=== PATIENT | female | born 1955 | race Caucasian/White ===

== ENCOUNTER 2019-07-12 08:50 | Day surgery (SDC) | payer MEDICARE, OTHER ==
[~2019-07-12] VITALS: Ht 157.5 cm; Wt 80.7 kg
[~2019-07-12 08:50] MED LIST: ASPIRIN EC81 MG PO; CIPRO500 MG PO; CITALOPRAM HBR20 MG PO; CLOBETASOL PROP15 GM TOP; DICLOFENAC POTA50 MG PO; FLAGYL250 MG PO; FLAGYL500 MG PO; HYDROCHLOROTHIA25 MG PO; LEVOTHYROXINE125 MCG PO; LOVASTATIN20 MG PO; OCUVITE TABLET1 EAC1 PO; PEPCID20 MG PO; PERCOCET 7.5-31 EACH PO; PRENATAL MULTI1 EAC5 PO; PRENATAL TABLE1 EACH PO; PRILOSEC20 MG PO; ROPINIROLE HC0.25 MG PO; SULFAMETHOXAZO1 EAC1 PO; VICODIN 5-3001 EACH PO; VISION VITAMIN1 EACH PO; VITAMIN C100 MG PO; VITAMIN D1000 UNI1 PO; ZYRTEC10 MG PO
--- NOTE | 2019-07-12 10:24 | NUR ---
update for wait given. warm blanket on. iv patent.
--- NOTE | 2019-07-12 10:48 | NUR ---
VERSED GIVEN FOR RESTLESS LEGS. RAILS UP O2 SAT ON.95% ON RA.
--- NOTE | 2019-07-12 11:30 | NUR ---
CANNONEER AP IN TO DO BLOCK, L ARM.
[2019-07-12] MEDS ORDERED: HYDROCODON-ACE1 EA11 PO (13:26)
--- NOTE | 2019-07-12 14:12 | NUR ---
RUNNING ERRANDS. PTSLEEPY.
--- NOTE | 2019-07-12 15:22 | NUR ---
AMB IN [place] TO [place], VOIDS QS. WANTS TO GO HOME. GETTING DRESSED WITH HUSBANDASSIST.
--- NOTE | 2019-07-12 15:30 | OR ---
[facility] [address] [place], [place] [address] Signed DATE OF OPERATION: 07/12/2019 SURGEON: Charan Mulligan MD PREOPERATIVE DIAGNOSIS: Carpometacarpal arthrosis, left thumb. POSTOPERATIVE DIAGNOSIS: Carpometacarpal arthrosis, left thumb. PROCEDURE PERFORMED: Left carpometacarpal arthroplasty. POTATO SPOTTER: Whitney Saenz PA-C. Whitney was present and critical for all portions of procedure. ANESTHESIA: General. BLOOD LOSS: Minimal. TOURNIQUET TIME: 43 minutes. Arthrex interference screw was used. BRIEF HISTORY: Kimmie is a 63-year-old female with CMC arthritis that had been treated with bracing and injections and was no longer effective. She wished to proceed with operative intervention. Risks, benefits, and alternatives of surgery were discussed with her and she elected to proceed. DESCRIPTION OF PROCEDURE: Once consent was obtained, she was taken to the operating room. After adequate anesthesia, she was placed on operating table. Downside pressure points were well padded. A well-padded proximal arm tourniquet was placed. The arm was then prepped and draped in a standard sterile fashion and exsanguinated using Esmarch bandage. Tourniquet was inflated to 200 mmHg. The CMC joint was marked out as was the FCR tendon. The volar wrist was then approached through a curved incision along the Electronically Signed By: CHARAN MULLIGAN MD 07/12/19 1530 PATIENT NAME: KIMMIE PADILLA OPERATIVE REPORT DATE OF : 51 REPORT #: [id number] PHYSICIAN: CHARAN MULLIGAN MD PCP: JONATHAN TEMPLE MD REPORT IS CONFIDENTIAL AND NOT TO BE RELEASED WITHOUT AUTHORIZATION [facility] [address] [place], [place] [address] Signed glabrous line. This carried through skin subcutaneous tissue. The volar wrist capsule was then opened and elevated off the trapezium. The freezing was isolated removed by piecemeal after splitting with an osteotome. Once all the bone was removed, the base of the thumb metacarpal was cleared of soft tissue. The FCR was then harvested through a separate stab incision about 4 cm proximally. This was brought back down into the wrist. This was then cleared down to its insertion on the base of the 2nd. Once this was accomplished, the guide gary. The guide pin was a car but was taken across the base of the thumb metacarpal and overdrilled using the 4 mm drill. The tendon was then brought through this using the fingertrap. Using the push-pull method, the tendon was tightened and the interference screw was placed in the bone. Excellent fixation was obtained. Tendon was then folded over on itself and sutured back to its base at the 2nd metacarpal using 2-0 Vicryl. Multiple sutures were placed. Remainder of the tendon was then sutured into a and she will be. This was left in the void. The wound was copiously irrigated with antibiotic solution and the volar wrist capsule was closed with 3-0 Monocryl, subcutaneous tissue with 3-0 Monocryl, and skin with Steri-Strips. The wounds were dressed with Adaptic, 4x4s, and a thumb spica splint. She tolerated the procedure well. All sponge, needle, and instrument counts were correct. Charan Mulligan MD BA/MODL /[id number] Copies: ~ Electronically Signed By: CHARAN MULLIGAN MD 07/12/19 1530 PATIENT NAME: KIMMIE PADILLA OPERATIVE REPORT DATE OF : 51 REPORT #: [id number] PHYSICIAN: CHARAN MULLIGAN MD PCP: JONATHAN TEMPLE MD REPORT IS CONFIDENTIAL AND NOT TO BE RELEASED WITHOUT AUTHORIZATION
--- NOTE | 2019-07-12 15:38 | NUR ---
HAS DONE WELL. HAS HAD L ARM SLING ON.REMINDED TO BE AWARE OF WHERE ARM IS SHE CANT FEEL IT. ALSO TOLD THIS. DRANK WATER AND COFFEE.
== END 2019-07-12 15:25 | disposition home or self-care (01) ==
LOC: OPS 08:50 → DS 08:50 → OPS 12:00 → DS 12:00 → OPS 12:30
PROVIDERS: Specialist
PROC: 0RQT0ZZ Repair Left Carpometacarpal Joint, Open Approach (ICD-10-PCS; principal; 2019-07-12 12:30)
DX: M18.12 Unilateral primary osteoarthritis of first carpometacarpal joint, left hand (principal); F17.210 Nicotine dependence, cigarettes, uncomplicated; K21.9 Gastro-esophageal reflux disease without esophagitis; Z88.1 Allergy status to other antibiotic agents; Z79.899 Other long term (current) drug therapy; Z79.1 Long term (current) use of non-steroidal anti-inflammatories (NSAID)
CPT/HCPCS: 01830; 64417; 76942; C1713; J0690; J1100; J1885; J2250; J2405; J2704; J2765; J2795; J3010; J7121

== ENCOUNTER 2021-03-11 06:25 | Day surgery (SDC) | payer MEDICARE, OTHER ==
[~2021-03-11] VITALS: Ht 157.5 cm; Wt 77.3 kg
[~2021-03-11 06:25] MED LIST changes: +HYDROCODON-ACE1 EA11 PO
--- NOTE | 2021-03-11 08:04 | NUR ---
PT ALERT, ORIENTED AND MENTIONED SHE DID NOT SLEEP WELL LAST NIGHT. DROVE IN FROM [place] THIS AM. PT SOMEWHAT ANXIOUS, GAVE ENCOURAGEMENT AND GUIDANCE FOR THE DAY. PT REQUESTED PRAYER, PT'S IS IN TOWN RUNNING ERRANDS. WILL FOLLOW NEEDED
--- NOTE | 2021-03-11 10:45 | NUR ---
03/11/21 Alex5 Xiao Fletcher 1036- PT ARRIVES TO PACU NONAROUSABLE TO NOXIOUS STIMULI. PT SUCTIONED FOR SECRETIONS BY SEAT BUILDER. RESP 20-24 AND EVEN. OXYGEN SAT HIGH 90'S TO 100% ON 8L VIA MASK.
--- NOTE | 2021-03-11 11:23 | NUR ---
PT IS BACK TO DS FROM PACU. SHE IS DROWSY, BUT WAKES UP EASILY TO ANSWER QUESTIONS APPROPRIATELY. SHE IS TOLERATING SMALL SIPS OF WATER. CALL LIGHT WITHIN REACH. NO ADDITIONAL NEEDS.
--- NOTE | 2021-03-11 12:38 | NUR ---
PT IS ASSISTED UP OOB TO THE RESTROOM WHERE SHE VOIDS QS. SHE IS ABLE TO AMBULATE HERSELF BACK TO HER ROOM. SHE REQUESTS APPLE SAUCE. SHE IS EDUCATED THAT ONCE SHE IS DONE EATING, SHE CAN GET DRESSED, SHE IS EDUCATED ON HOW TO BEST DO THAT. ONCE SHE IS READY IS ASKED TO TURN ON HER CALL LIGHT. CALL LIGHT WITHIN REACH.
--- NOTE | 2021-03-11 13:12 | NUR ---
PT IS GIVEN VERBAL DC INSTRUCTIONS. THEY BOTH VERBALIZE UNDERSTANDING. NO QUESTIONS ARE ASKED AT THIS TIME. PT IS TAKEN TO VEHICLE VIA WC, SHE IS ABLE TO TRANSFER HERSELF FROM WC TO VEHICLE.
--- NOTE | 2021-03-12 13:46 | OR ---
[facility] [address] [place], [place] [address] Signed DATE OF OPERATION: 03/11/2021 SURGEON: Eduard Barajas MD PREOPERATIVE DIAGNOSIS: Left vocal cord lesion. POSTOPERATIVE DIAGNOSIS: Left vocal cord lesion. PROCEDURE: Direct laryngoscopy, excision of left vocal cord lesion. ANESTHESIA: General orotracheal, ASSISTANT FINANCIAL ACCOUNTANT, Kristi. HISTORY: Ms. Padilla is a 65-year-old lady with chronic lung disease, COPD, hoarseness for the last year, so she has been improved with several courses of antibiotics, prednisone. Exam in the office recently fiberoptically has shown polypoid changes of the left vocal cord, midportion and posterior portion, and she was taken to the operating room for the above-mentioned procedures. PROCEDURE AND FINDINGS: After informed consent, the patient was taken to the operating room, placed in supine position, where general orotracheal anesthesia was induced. The patient and procedure were verified. The patient was repositioned. Anterior commissure laryngoscope was used to visualize the hypopharynx and larynx. Everything normal down to the left vocal cord, right vocal cord was clear. The left vocal cord had a reddish vascular appearing smooth mucosal polypoid type change of the left vocal cord, not involving the anterior commissure starting about the mid portion of the vocal cord, extending back posteriorly to the vocal process of the retinoid. The laryngoscope was placed into suspension. Cup forceps was used to excise polypoid material, it was quite vascular, but bleeding stopped after excision. The airway was improved. Hemostasis was verified. An OG tube was passed. The pharynx was suctioned clear of blood secretions. The scope was removed. The patient was awakened, extubated, and transported to the recovery room in good condition. No complications. BLOOD LOSS: Minimal. Electronically Signed By: EDUARD BARAJAS MD 03/11/21 1330 Electronically Signed By: EDUARD BARAJAS MD 03/18/21 1213 PATIENT NAME: KIMMIE PADILLA OPERATIVE REPORT DATE OF : 51 REPORT #: [id number] PHYSICIAN: EDUARD BARAJAS MD PCP: ALINA ROGERS NP REPORT IS CONFIDENTIAL AND NOT TO BE RELEASED WITHOUT AUTHORIZATION [address] [address] Signed SPECIMEN: To Pathology, left vocal cord lesion in formalin. DRAINS: No drains. Eduard Barajas MD GC/MODL /[id number] Copies: ~ Electronically Signed By: EDUARD BARAJAS MD 03/11/21 1330 Electronically Signed By: EDUARD BARAJAS MD 03/18/21 1213 PATIENT NAME: KIMMIE PADILLA OPERATIVE REPORT DATE OF : 51 REPORT #: [id number] PHYSICIAN: EDUARD BARAJAS MD PCP: ALINA ROGERS NP REPORT IS CONFIDENTIAL AND NOT TO BE RELEASED WITHOUT AUTHORIZATION
[2021-04-07] MEDS ORDERED: FLONASE ALLERG9.9 ML NAS (16:13)
[2021-04-07] MEDS ORDERED: VENTOLIN HFA18 GM INH (16:13)
[2021-04-07] MEDS ORDERED: ANORO ELLIPTA1 EACH INH (16:14)
[2021-04-07] MEDS ORDERED: SINGULAIR10 MG PO (16:14)
[2021-04-07] MEDS ORDERED: FOSAMAX70 MG PO (16:15)
[2021-04-07] MEDS ORDERED: VITAMIN C1000 MG PO (16:15)
[2021-04-07] MEDS ORDERED: LIPITOR10 MG PO (16:16)
[2021-04-07] MEDS ORDERED: ZESTRIL5 MG PO (16:17)
[2021-04-07] MEDS ORDERED: LEVOTHYROXINE13 MCG PO (16:17)
== END 2021-03-11 13:05 | disposition home or self-care (01) ==
LOC: DS 06:25 → OPS 06:25 → DS 10:15 → OPS 10:15
PROVIDERS: ATTEND Otolaryngology
PROC: 0CBV8ZZ Excision of Left Vocal Cord, Via Natural or Artificial Opening Endoscopic (ICD-10-PCS; principal; 2021-03-11 10:15)
DX: J38.2 Nodules of vocal cords (principal); R49.0 Dysphonia; J44.9 Chronic obstructive pulmonary disease, unspecified; E03.9 Hypothyroidism, unspecified; F17.200 Nicotine dependence, unspecified, uncomplicated; Z88.0 Allergy status to penicillin; Z20.822 Contact with and (suspected) exposure to COVID-19
CPT/HCPCS: 00170; 88305; J1100; J2550; J2704; J3475; J7121; U0003

== ENCOUNTER 2021-04-08 07:29 | Day surgery (SDC) | payer MEDICARE, OTHER ==
[~2021-04-08] VITALS: Ht 157.5 cm; Wt 79.5 kg
[~2021-04-08 07:29] MED LIST changes: +ANORO ELLIPTA1 EACH INH; +FLONASE ALLERG9.9 ML NAS; +FOSAMAX70 MG PO; +LEVOTHYROXINE13 MCG PO; +LIPITOR10 MG PO; +SINGULAIR10 MG PO; +VENTOLIN HFA18 GM INH; +VITAMIN C1000 MG PO; +ZESTRIL5 MG PO
--- NOTE | 2021-04-08 08:00 | NUR ---
BOTH NARES SWABBED FOR COVID-19 WITHOUT COMPLICATION. SAMPLE TAKEN TO LAB.
--- NOTE | 2021-04-08 11:14 | NUR ---
04/08/21 1114 Aida Baker 1107 PATIENT ARRIVES TO PACU UNRESPONSIVE TO PAIN. ORAL AIRWAY IN PLACE. RESP EVEN AND UNLABORED, MASK AT 10 LITERS, DECREASED TO 6. AUDIBLE WHEEZING NOTED.
--- NOTE | 2021-04-08 13:05 | NUR ---
1300: PATIENT MORE ALERT, BUT STILL SLIGHTLY DROWSY. TOLERATED JELLO, PUDDING, AND CRACKERS. VS CHECKED. NO DRAINAGE ON MOUSTACHE DRESSING. AT BEDSIDE. DENIES PAIN. CALL LIGHT WITHIN REACH.
[2021-04-08] MEDS ORDERED: CEPHALEXIN500 M1 PO (14:02)
[2021-04-08] MEDS ORDERED: HYDROCODON-ACE1 EA10 PO (14:02)
--- NOTE | 2021-04-08 16:19 | NUR ---
1430: DISCHARGE INSTRUCTIONS GIVEN TO PATIENT. PATIENT ASSISTED OOB AND TO GET DRESSED. STAND BY ASSIST TO BATHROOM. GAIT STEADY. VOID WITHOUT DIFFICULTY. GAIT STEADY BACK TO ROOM. IV DC'D WNL. TIP INTACT DRESSING APPLIED. WAITING FOR (RIDE HOME) TO COME BACK TO HOSPITAL AFTER HIS OWN DR APPT. 1500: PATIENT DISCHARGED TO HOME VIA WHEELCHAIR WITH .
--- NOTE | 2021-04-15 12:19 | OR ---
[facility] [address] [place], [place] [address] Signed DATE OF OPERATION: 04/08/2021 SURGEON: Eduard Barajas MD PREOPERATIVE DIAGNOSIS: Nasal obstruction due to septal deformity and inferior turbinate hypertrophy. POSTOPERATIVE DIAGNOSIS: Nasal obstruction due to septal deformity and inferior turbinate hypertrophy. PROCEDURE: Septoplasty and cautery, bilateral inferior turbinates. ANESTHESIA: General LMA. Jett LANDRUM. PREOPERATIVE HISTORY: Kimmie is a 65-year-old lady with a long history of nasal obstruction, congestion. Exam in the office has shown septal deformity, inferior turbinate hypertrophy, this has been unresponsive to appropriate medications and she is taken to the operating for the above-mentioned procedures. OPERATIVE PROCEDURE AND FINDINGS: After informed consent, the patient was taken to the operating room, placed in supine position where general LMA anesthesia was induced. The patient and procedure were verified. The patient received preoperative intranasal oxymetazoline, intravenous Ancef. Headlight speculum exam of the nasal cavity showed a significant septal deformity on the left side, large shelf and spur mainly inferiorly, posteriorly, smaller spur on the right. Septal mucosa was injected with 1% lidocaine with epi on each side, total of 4 mL. The septal mucosa was elevated off the deviated septal bone and cartilage and the cartilage and bone was removed with Solis, left inferior and posterior shelf and the right inferior. The airway was improved in this manner. The inferior turbinates were then cauterized with a long handle needle point cautery starting on the left side. The medial and inferior surface of the inferior turbinate starting anteriorly extending all the way back posteriorly, multiple passes, transmucosal, excellent shrinkage. Same procedure on the right inferior turbinate. The airway was markedly improved. Bleeding was controlled. Hemostasis verified. Packing was then placed. Trimmed Merocel equal amount each side, coated with Neosporin, tied anteriorly over a pad. The pharynx was suctioned clear of blood secretions. The Electronically Signed By: EDUARD BARAJAS MD 04/15/21 1219 PATIENT NAME: KIMMIE PADILLA OPERATIVE REPORT DATE OF : 51 REPORT #: [id number] PHYSICIAN: EDUARD BARAJAS MD PCP: ALINA ROGERS NP REPORT IS CONFIDENTIAL AND NOT TO BE RELEASED WITHOUT AUTHORIZATION [address] [address] Signed patient was then awakened, extubated, transported to the recovery room in good condition. No complications. BLOOD LOSS: Minimal. SPECIMEN: No specimen. DRAINS: No drains. PACKING: One piece of Merocel each nostril. Eduard Barajas MD GC/MODL /[id number] Copies: ~ Electronically Signed By: EDUARD BARAJSA MD 04/15/21 1219 PATIENT NAME: KIMMIE PADILLA OPERATIVE REPORT DATE OF : 51 REPORT #: [id number] PHYSICIAN: EDUARD BARAJAS MD PCP: ALINA ROGERS NP REPORT IS CONFIDENTIAL AND NOT TO BE RELEASED WITHOUT AUTHORIZATION
== END 2021-04-08 15:00 | disposition home or self-care (01) ==
LOC: OPS 07:29 → DS 07:29 → OPS 11:00
PROVIDERS: ATTEND Otolaryngology
PROC: 09BM8ZZ Excision of Nasal Septum, Via Natural or Artificial Opening Endoscopic (ICD-10-PCS; principal; 2021-04-08 11:00)
PROC: 095L8ZZ Destruction of Nasal Turbinate, Via Natural or Artificial Opening Endoscopic (ICD-10-PCS; 2021-04-08 11:00)
DX: J34.2 Deviated nasal septum (principal); J34.3 Hypertrophy of nasal turbinates; J34.89 Other specified disorders of nose and nasal sinuses; J44.9 Chronic obstructive pulmonary disease, unspecified; K21.9 Gastro-esophageal reflux disease without esophagitis; E03.9 Hypothyroidism, unspecified; E78.00 Pure hypercholesterolemia, unspecified; I10 Essential (primary) hypertension; R01.1 Cardiac murmur, unspecified; F17.200 Nicotine dependence, unspecified, uncomplicated; Z88.0 Allergy status to penicillin; Z20.822 Contact with and (suspected) exposure to COVID-19; Z99.81 Dependence on supplemental oxygen; Z79.52 Long term (current) use of systemic steroids
CPT/HCPCS: 00160; C9803; J0690; J7121; U0003

== ENCOUNTER 2021-07-10 10:51 | Day surgery (SDC) | payer MEDICARE, OTHER ==
[~2021-07-10] VITALS: Ht 157.5 cm; Wt 76.2 kg
[~2021-07-10 10:51] MED LIST changes: +CEPHALEXIN500 M1 PO; +HYDROCODON-ACE1 EA10 PO
[2021-07-10] MEDS ORDERED: LIPITOR20 MG PO (11:23)
[2021-07-10] MEDS ORDERED: ASPIRIN81 MG PO (11:34)
--- NOTE | 2021-07-12 10:50 | OR ---
[facility] [address] [place], [place] [address] Signed DATE OF OPERATION: 07/10/2021 SURGEON: Jonathan Corbin MD PREOPERATIVE DIAGNOSES: 1. Anemia (hematocrit 30.8, March 2021); no evidence of hematemesis or blood per rectum. 2. History of sigmoid diverticular resection. 3. Known celiac disease. POSTOPERATIVE DIAGNOSES: 1. Upper endoscopy essentially normal. 2. Colon normal, anastomosis widely patent. PROCEDURES: 1. Esophagogastroduodenoscopy with biopsy. 2. Total colonoscopy to cecum with biopsy of rectum. ANESTHESIA: Intravenous sedation; fentanyl 100 mcg and Versed 5 mg total. INDICATION: This 65-year-old white woman is a patient Dr. Duarte and well known to me. On a vacation in the past several months, she had a diarrhea bout, which was rather prolonged and problematic, but resolved entirely. She has no family history of colon cancer and she is known to have celiac disease for which she generally avoids gluten. She was sent by Dr. Duarte in March to have hematocrit of 30.8 for reasons that are unclear. On that basis, she is here to undergo upper endoscopy and colonoscopy, understands the risks of bleeding, infection, and perforation. FINDINGS: Upper endoscopy was essentially normal. There was a small hiatal hernia, Ann's epithelium, but no sign of lesion that would account for anemia. The mucosa of the duodenum including the distal duodenum appeared reasonably normal. Biopsies were obtained on the knowledge that she has been considered to have celiac disease in the past. CLOtest was -30 minutes post procedure. As regard to the colon, it was well visualized throughout. There were a few scattered diverticula, but no findings of concern in the area of prior anastomosis widely patent. The rectum was biopsied to rule out occult colitis. Electronically Signed By: JONATHAN CORBIN MD 07/12/21 1050 PATIENT NAME: KIMMIE PADILLA OPERATIVE REPORT DATE OF : 51 REPORT #: [id number] PHYSICIAN: JONATHAN CORBIN MD PCP: PAUL DUARTE MD REPORT IS CONFIDENTIAL AND NOT TO BE RELEASED WITHOUT AUTHORIZATION [facility] [address] [place], [place] [address] Signed DESCRIPTION OF PROCEDURE: The patient was brought to the endoscopy suite and placed in lateral decubitus position, given intravenous sedation to the point of slurred speech and nystagmus. Full cardiopulmonary monitoring was maintained. The pharynx had been sprayed with lidocaine spray. A bite block was placed. An Olympus video upper endoscope was passed in the hypopharynx. The vocal cords were normal and the scope was passed into hypopharynx and the esophagus, which was normal except for some distal minimal Ann's epithelium. The scope was advanced to the stomach, which was insufflated with air. Rugal folds were normal. There was no sign of gastritis, ulcer, or neoplasm. Pylorus was normal. Scope was passed through into the duodenum as far as possible. Biopsies were taken distally and proximally, though the mucosa looked reasonably normal. There was no ulcer and no stigmata of celiac disease. The scope was withdrawn to the stomach where biopsies were taken of the antrum for both KARINA and pathologic testing. Retroflexed view showed small hiatal hernia. The scope was withdrawn to the distal esophagus where Ann's epithelium was noted. This area in the distal esophageal mucosa was biopsied. Careful withdrawal of the scope showed no other findings of concern. Plans were made for colonoscopy. Additional sedation was given. Digital rectal examination was normal. An Olympus video colonoscope was passed in the rectum and manipulated throughout the colon noting the left-sided anastomosis from primary sigmoid resection. It was widely patent. The scope was ultimately advanced to the cecum. The ileocecal valve and appendiceal orifice were normal. Scope was withdrawn from that point. Examination throughout showed no evidence of polyps or colitis. There were a few scattered diverticula. The anastomosis looks once again evaluated and found to be normal. The scope was withdrawn to the rectum. Retroflexed view was essentially normal. Biopsies were taken of the rectal mucosa to assess for occult colitis. The scope was removed and the patient was taken to the recovery room in good condition. CONCLUDING DIAGNOSIS: No findings on upper or lower endoscopic evaluation to account for anemia. PLAN: She will return to the ongoing care of Dr. Duarte. We will obtain a CBC today to assess her comparative hematocrit, which was 30.8 in March. Jonathan Corbin MD JM/MODL Electronically Signed By: JONATHAN CORBIN MD 07/12/21 1050 PATIENT NAME: KIMMIE PADILLA OPERATIVE REPORT DATE OF : 51 REPORT #: [id number] PHYSICIAN: JONATHAN CORBIN MD PCP: PAUL DUARTE MD REPORT IS CONFIDENTIAL AND NOT TO BE RELEASED WITHOUT AUTHORIZATION [address] [address] Signed /[id number] cc: Dr. Duarte Copies: ~ Electronically Signed By: JONATHAN CORBIN MD 07/12/21 1050 PATIENT NAME: KIMMIE PADILLA OPERATIVE REPORT DATE OF : 51 REPORT #: [id number] PHYSICIAN: JOANTHAN CORBIN MD PCP: PAUL DUARTE MD REPORT IS CONFIDENTIAL AND NOT TO BE RELEASED WITHOUT AUTHORIZATION
--- NOTE | 2021-07-14 14:39 | PATH ---
[facility] [address] [place], [place] [address] Signed SPECIMEN(S): A DISTAL DUODENUM BIOPSY SPECIMEN(S): B ANTRUM/PYLORUS BIOPSY SPECIMEN(S): C ESOPHAGEAL BIOPSY SPECIMEN(S): D RECTAL BIOPSY SPECIMEN SOURCE: A. DISTAL DUODENUM BIOPSY B. ANTRUM/PYLORUS BIOPSY C. ESOPHAGEAL BIOPSY D. RECTAL BIOPSY CLINICAL HISTORY: Pre-op: GERD, anemia, RUQ pain. Esophagogastroduodenoscopy, colonoscopy with possible biopsies. MICROSCOPIC DESCRIPTION: Histologic sections of all submitted blocks are examined by light microscopy. These findings, together with the gross examination, support the pathologic diagnosis. FINAL PATHOLOGIC DIAGNOSIS: A. Duodenum, distal, biopsy: - Duodenal mucosa with peptic injury. B. Stomach, antrum/pylorus, biopsy: - Gastric antral mucosa with no significant pathologic changes. - Negative for Helicobacter pylori with HE stains. C. Esophagus, biopsy: - Esophageal squamous mucosa with no significant pathologic changes. D. Rectum, biopsy: - Colonic mucosa with no significant pathologic changes. BRP:cml:C2NR GROSS DESCRIPTION: Four specimens are received in four containers labeled "PA". A. The specimen, labeled "PA, #1 biopsy distal duodenum," and designated on the requisition "duodenum bulb biopsy," is received in formalin and consists of five fragments of pink-jade tissue (0.2-0.4 cm in greatest dimension). The specimen is submitted entirely in cassette (A1). B. The specimen, labeled "PA, #2, antrum," is received in formalin and consists of two fragments of pink-jade tissue (0.3 cm in greatest dimension). The specimen is submitted entirely in cassette (B1). C. The specimen, labeled "PA, #3, distal esophagus," is received in formalin PATIENT NAME: IKMMIE PADILLA PATHOLOGY DATE OF : 51 REPORT #: [id number] PHYSICIAN: SANDRA PATHOLOGY PCP: PAUL DUARTE MD REPORT IS CONFIDENTIAL AND NOT TO BE RELEASED WITHOUT AUTHORIZATION [facility] [address] [place], [place] [address] Signed and consists of three fragments of white-jade tissue (0.2-0.3 cm in greatest dimension). The specimen is submitted entirely in cassette (C1). D. The specimen, labeled "PA, #4, rectal biopsy," is received in formalin and consists of three fragments of pink-jade tissue (0.1-0.3 cm in greatest dimension). The specimen is submitted entirely in cassette (D1). AC (under the direct supervision of a pathologist) The Gross Description was prepared using a voice recognition system. The report was reviewed for accuracy; however, sound-alike word errors, addition and/or deletions may occur. If there is any question about this report, please contact Client Services. PERFORMING LABORATORY: The technical component was performed by [facility], [address] [place] [id number] (Tankage Supervisor: Catherine Encarnacion MD; CLIA# [id number]). Professional interpretation was performed by [facility], Formerly [facility], 1928–[facility], [address] [place] [address] (CLIA# [id number]). Diagnostician: Jaylan Corral MD Pathologist Electronically Signed 07/14/2021 Copies: ~ PATIENT NAME: KIMMIE PADILLA PATHOLOGY DATE OF : 51 REPORT #: [id number] PHYSICIAN: SANDRA ORTEZ PCP: PAUL DUARTE MD REPORT IS CONFIDENTIAL AND NOT TO BE RELEASED WITHOUT AUTHORIZATION
== END 2021-07-10 15:40 | disposition home or self-care (01) ==
LOC: OPS 10:51 → DS 10:51 → OPS 14:00 → DS 14:00 → OPS 15:40
PROVIDERS: ATTEND Surgery
PROC: 0DBP8ZX Excision of Rectum, Via Natural or Artificial Opening Endoscopic, Diagnostic (ICD-10-PCS; 2021-07-10)
PROC: 0DB98ZX Excision of Duodenum, Via Natural or Artificial Opening Endoscopic, Diagnostic (ICD-10-PCS; principal; 2021-07-10 14:00)
PROC: 0DB78ZX Excision of Stomach, Pylorus, Via Natural or Artificial Opening Endoscopic, Diagnostic (ICD-10-PCS; 2021-07-10 14:00)
DX: D64.9 Anemia, unspecified (principal); K90.0 Celiac disease; K44.9 Diaphragmatic hernia without obstruction or gangrene; Z20.822 Contact with and (suspected) exposure to COVID-19
CPT/HCPCS: 85025; 88305; 99153; C9803; G0500; J2250; J3010; J7121; U0003

== ENCOUNTER 2025-06-12 10:52 | Day surgery (SDC) | payer MEDICARE, OTHER ==
[~2025-06-12] VITALS: Ht 157.5 cm; Wt 66.8 kg
[~2025-06-12 10:52] MED LIST changes: +ALTOPREV20 MG PO; +ASPIRIN81 MG PO; +IBLOOD GLUCOSE TEST STRIP 1 EA TEST VI PRN; +LACTATED RINGER'S 1,000 ML IV SCH; +LIDOCAINE HCL 1% 5 ML SDV INJ ONE; +LIDOCAINE HCL 4% 50 ML BTL TOP SCH; +LIPITOR20 MG PO; +TRAMADOL HCL50 MG PO
[2025-06-12 11:14] VITALS: BP 132/76
[2025-06-12] MEDS ORDERED: fentaNYL citrate 100 MCG/2 ML VIAL ONE (12:41)
[2025-06-12] MEDS ORDERED: MIDAZOLAM HCL 5 MG/5 ML VIAL ONE (12:41)
--- NOTE | 2025-06-12 13:51 | NUR ---
06/12/25 1351 Maude Barroso 1343: PT ARRIVES TO PACU. SHE IS DROWSY, BUT AWAKES EASILY TO CHAT WITH STAFF. REPROT RECEIVED FROM MODEL MAKING SUPERVISOR'S.
[2025-06-12 14:16] VITALS: BP 114/63
[2025-06-14] MEDS ORDERED: OMEPRAZOLE20 MG PO (15:26)
--- NOTE | 2025-06-15 18:26 | OR ---
[facility] [address], [place] [address] Signed DATE OF OPERATION: 06/12/2025 SURGEON: Jonathan Corbin MD PREOPERATIVE DIAGNOSIS: Persistent vomiting, concern for gastric outlet obstruction versus gastroparesis. POSTOPERATIVE DIAGNOSES: 1. No evidence of gastroparesis; hiatal hernia with Ann's esophagus. 2. Duodenitis. PROCEDURE: Esophagogastroduodenoscopy with biopsy. ANESTHESIA: Intravenous sedation, fentanyl 100 mcg, and Versed 3 mg. INDICATION: This 69-year-old white woman is a patient Dr. Duarte well known to me from the past. She had persistent nausea and vomiting issues such that she may have gastric outlet obstruction or possible gastroparesis. Upper endoscopy was recommended on that basis. Quite notably, she has had cholecystectomy in the past. She is taking no GLP-1 agonist to induce the gastroparesis problem. She is admitted to undergo upper endoscopy. She understands the risk of bleeding, infection, and perforation. FINDINGS: There is no evidence of gastric outlet obstruction, though she did have duodenitis, particularly in the proximal duodenum. There was mild antral gastritis. Hiatal hernia was noted and Ann's epithelium also noted. CLOtest was negative immediately post procedure. DESCRIPTION OF PROCEDURE: The patient was brought to the endoscopy suite and given topical lidocaine hypopharyngeal anesthesia and placed in lateral decubitus position. She was given intravenous sedation to the point of slurred speech and nystagmus with full cardiopulmonary monitoring. A bite block was placed. An Olympus video upper endoscope was passed in the hypopharynx. The vocal cords appeared normal. Scope was advanced to the esophagus, throughout its length it was reasonably normal except in the distal portion where there clearly was Ann's Electronically Signed By: JONATHAN CORBIN MD 06/15/25 1826 PATIENT NAME: KIMMIE PADILLA OPERATIVE REPORT DATE OF : 51 REPORT #: [id number] PHYSICIAN: JONATHAN CORBIN MD PCP: MONIKA DUARTE MD REPORT IS CONFIDENTIAL AND NOT TO BE RELEASED WITHOUT AUTHORIZATION [facility] [address], [place] [address] Signed epithelium. The scope was passed to the stomach, which was insufflated with air. Rugal folds were normal. There was no sign of ulceration, neoplasm, or retained food. There is certainly no gastric outlet obstruction. The pylorus was open and the scope passed through into the duodenum. The bulbar portion did appear somewhat inflamed, but without ulceration. The scope was passed to the third portion, which was normal. Biopsies were taken of the second and third portions and ultimately the bulbar portion. The scope was withdrawn. A biopsy was then taken for both KARINA and pathologic testing. Retroflexed view showed a hiatal hernia, moderate in size. The scope was withdrawn. A biopsy was then undertaken and distal esophageal mucosa was clearly showed Ann's epithelium. Further withdrawal allowed for midesophageal biopsy, though the mucosa was normal. Scope was removed. The patient was taken to the recovery room in good condition. CONCLUDING DIAGNOSIS: Ann's epithelium with associated hiatal hernia; no evidence of gastric outlet obstruction or gastroparesis proper. PLAN: We will prescribe Prilosec 20 mg p.o. daily. She has an incisional hernia for which repair might be undertaken. I do not believe that it is accounting for her nausea and vomiting issue. Scheduling of the operation will be appropriate. We will see her for repair of the hernia and coincidental followup of her reflux symptoms. MD TREVOR Little/AARONL /[id number] cc: Monika Duarte MD Copies: ~ Electronically Signed By: JONATHAN CORBIN MD 06/15/25 1826 PATIENT NAME: KIMMIE PADILLA OPERATIVE REPORT DATE OF : 51 REPORT #: [id number] PHYSICIAN: JONATHAN CORBIN MD PCP: MONIKA DUARTE MD REPORT IS CONFIDENTIAL AND NOT TO BE RELEASED WITHOUT AUTHORIZATION
--- NOTE | 2025-06-18 11:20 | PATH ---
[facility] [address], [place] [address] Signed SPECIMEN(S): A DUODENAL BIOPSY SPECIMEN(S): B DUODENAL BULB BIOPSY SPECIMEN(S): C ANTRUM BIOPSY SPECIMEN(S): D DISTAL ESOPHAGUS BIOPSY SPECIMEN(S): E MID ESOPHAGUS BIOPSY SPECIMEN SOURCE: A. DUODENAL BIOPSY B. DUODENAL BULB BIOPSY C. ANTRUM BIOPSY D. DISTAL ESOPHAGUS BIOPSY E. MID ESOPHAGUS BIOPSY CLINICAL HISTORY: Possible umbilical Pandya incisional hernia, regurgitation, anemia, hiatal hernia, Ann's esophagus FINAL PATHOLOGIC DIAGNOSIS: A. Duodenum, biopsy: - Duodenal mucosa with no villous abnormality identified. - Kimberly's glands are present. - Negative for acute, chronic, and granulomatous inflammation. - Negative for dysplasia and malignancy. B. Duodenal bulb, biopsy: - Duodenal mucosa with peptic duodenitis. - No villous abnormality identified. - Kimberly's glands are present. - Negative for dysplasia and malignancy. C. Stomach, antrum, biopsy: - Non-acid secreting gastric mucosa with slight superficial vascular congestion. - Negative for chronic, acute, and active inflammation. - No H. pylori-like organisms identified on routine HE-stained histologic sections. - Negative for intestinal metaplasia, dysplasia, and malignancy. D. Distal esophagus, biopsy: - Gastroesophageal junctional-type mucosa with intestinal metaplasia (incomplete type); consistent with Ann's esophagus. - Chronic inflammation is present in the lamina propria, with associated reactive epithelial cell changes. PATIENT NAME: KIMMIE PADILLAN PATHOLOGY DATE OF : 51 REPORT #: [id number] PHYSICIAN: SANDRA ORTEZ PCP: PAUL DUARTE MD REPORT IS CONFIDENTIAL AND NOT TO BE RELEASED WITHOUT AUTHORIZATION [facility] [address], [place] [address] Signed - Negative for dysplasia and malignancy. E. Mid-esophagus, biopsy: - Stratified squamous esophageal mucosa with congestion in the rete peg vessels. - Negative for acute, chronic, and eosinophilic inflammation. - Negative for dysplasia and malignancy. COMMENT: As a part of [employer] Inspector program, this case received peer review by a second pathologist, with agreement for the above diagnosis. SDL MICROSCOPIC EXAMINATION: Histologic sections of all submitted blocks are examined by light microscopy. These findings, together with the gross examination, support the pathologic diagnosis. GROSS DESCRIPTION: A. The specimen, labeled and designated "Howard, duodenal biopsy," is received in formalin and consists of one jade soft tissue fragment, 0.3 cm. Entirely submitted in (A1). B. The specimen, labeled and designated "Molt, duodenal bulb biopsy," is received in formalin and consists of two jade soft tissue fragments, ranging from 0.3-0.4 cm. Entirely submitted in (B1). C. The specimen, labeled and designated "Molt, antrum biopsy," is received in formalin and consists of two jade soft tissue fragments, ranging from 0.1-0.4 cm. Entirely submitted in (C1). D. The specimen, labeled and designated "Howard, distal esophagus biopsy," is received in formalin and consists of five jade soft tissue fragments, ranging from 0.4-0.6 cm. Entirely submitted in (D1). E. The specimen, labeled and designated "Howard, mid-esophagus biopsy," is received in formalin and consists of three jade soft tissue fragments, ranging from 0.2-0.6 cm. Entirely submitted in (E1). VB (under the direct supervision of a pathologist) The Gross Description was prepared using a voice recognition system. The report was reviewed for accuracy; however, sound-alike word errors, addition and/or deletions may occur. If there are any questions about this report, please contact Client Services. ADDITIONAL NOTES: Immunohistochemical and/or in situ hybridization studies if performed in this PATIENT NAME: KIMMIE PADILLA PATHOLOGY DATE OF : 51 REPORT #: [id number] PHYSICIAN: SANDRA PATHOLOGY PCP: PAUL DUARTE MD REPORT IS CONFIDENTIAL AND NOT TO BE RELEASED WITHOUT AUTHORIZATION [facility] [address] [place] [id number] Signed case included appropriate positive controls that reacted as expected. This test was developed and its performance characteristics determined by [facility]. It has not been cleared or approved by the U.S. Food and Drug Administration. The FDA has determined that such clearance or approval is not necessary. This test is used for clinical purposes. It should not be regarded as investigational or for research. [facility] is certified under the Clinical Laboratory Improvement Amendments of 1988 (CLIA) as qualified to perform high complexity clinical laboratory testing. PERFORMING LABORATORY: Technical component was performed by [facility], [address] [place] [id number] (CLIA# [id number]). Professional interpretation was performed by [facility], [address] [place] [id number] (CLIA#: [id number]). Diagnostician: Monique Stiles MD Pathologist Electronically Signed 06/18/2025 Copies: ~ PATIENT NAME: KIMMIE PADILLA PATHOLOGY DATE OF : 51 REPORT #: [id number] PHYSICIAN: SANDRA PATHOLOGY PCP: PAUL DUARTE MD REPORT IS CONFIDENTIAL AND NOT TO BE RELEASED WITHOUT AUTHORIZATION
[2025-06-18] MEDS ORDERED: CANDICIDAL CAP1 EACH PO (11:28)
[2025-06-18] MEDS ORDERED: TYLENOL EXTRA500 MG PO (11:29)
[2025-06-18] MEDS ORDERED: BIOTIN5 M1 PO (11:29)
== END 2025-06-12 14:33 | disposition home or self-care (01) ==
LOC: DS 10:52 → OPS 10:52 → DS 12:00 → OPS 14:33
PROVIDERS: ATTEND Surgery
PROC: 0DB68ZX Excision of Stomach, Via Natural or Artificial Opening Endoscopic, Diagnostic (ICD-10-PCS; 2025-06-12)
PROC: 0DB28ZX Excision of Middle Esophagus, Via Natural or Artificial Opening Endoscopic, Diagnostic (ICD-10-PCS; 2025-06-12)
PROC: 0DB38ZX Excision of Lower Esophagus, Via Natural or Artificial Opening Endoscopic, Diagnostic (ICD-10-PCS; 2025-06-12)
PROC: 0DB98ZX Excision of Duodenum, Via Natural or Artificial Opening Endoscopic, Diagnostic (ICD-10-PCS; principal; 2025-06-12 12:00)
DX: K22.70 Barrett's esophagus without dysplasia (principal); K29.80 Duodenitis without bleeding; K44.9 Diaphragmatic hernia without obstruction or gangrene; K29.50 Unspecified chronic gastritis without bleeding; J44.9 Chronic obstructive pulmonary disease, unspecified; K43.2 Incisional hernia without obstruction or gangrene; F17.210 Nicotine dependence, cigarettes, uncomplicated
CPT/HCPCS: 88305; 99153; G0500; J2250; J3010; J7121

== ENCOUNTER 2025-06-21 05:55 | Day surgery (SDC) | payer MEDICARE, OTHER ==
[~2025-06-21] VITALS: Ht 157.5 cm; Wt 65.0 kg
[~2025-06-21 05:55] MED LIST changes: +BIOTIN5 M1 PO; +CANDICIDAL CAP1 EACH PO; -IBLOOD GLUCOSE TEST STRIP 1 EA TEST VI PRN; -LIDOCAINE HCL 1% 5 ML SDV INJ ONE; -LIDOCAINE HCL 4% 50 ML BTL TOP SCH; +OMEPRAZOLE20 MG PO; +TYLENOL EXTRA500 MG PO
[2025-06-21 06:13] VITALS: BP 128/69
[2025-06-21] MEDS ORDERED: IBLOOD GLUCOSE TEST STRIP 1 EA TEST VI PRN ×2 (07:00→10:30)
[2025-06-21] MEDS ORDERED: CEFAZOLIN SODIUM 2 GM in SODIUM CHLORIDE 0.9% 100 ML IV SCH (07:00)
[2025-06-21] MEDS ORDERED: LIDOCAINE HCL 1% 5 ML SDV INJ ONE (07:00)
[2025-06-21] MEDS ORDERED: HEParin SOD (PORCINE) 5,000 UNIT/ML SDV SUB-Q SCH (07:00)
--- NOTE | 2025-06-21 08:45 | NUR ---
0845- HOURLY ROUNDING NOTED. PT SLEEPING, CALL LIGHT IN REACH.
[2025-06-21] MEDS ORDERED: fentaNYL citrate 100 MCG/2 ML VIAL ONE (09:30)
[2025-06-21] MEDS ORDERED: ACETAMINOPHEN 1,000 MG/100 ML VIAL ONE (09:31)
[2025-06-21] MEDS ORDERED: DEXAMETHASONE SOD PHOS 4 MG/ML VIAL ONE ×2 (09:31→09:39)
[2025-06-21] MEDS ORDERED: LIDOCAINE HCL 2% 5 ML SDV ONE (09:31)
--- NOTE | 2025-06-21 09:33 | NUR ---
0930- MEDS GIVEN PER EMAR. SECOND BAG OF LR STARTED FOR KVO.
--- NOTE | 2025-06-21 10:28 | NUR ---
06/21/25 1028 Sheets,Mariah 1024 PT ARRIVED TO PACU ON 6L VIA MASK, PT WAKES AND IS REORIENTED TO PACU. PT EAISLY FALLS BACK TO SLEEP WITH SNORING NOTED, VSS.
[2025-06-21] MEDS ORDERED: fentaNYL citrate 50 MCG/ML SDV IV PRN (10:30)
[2025-06-21] MEDS ORDERED: SEVOFLURANE 250 ML BTL INH ONE (10:30)
[2025-06-21] MEDS ORDERED: NALOXONE HCL 0.4 MG SYR IV PRN ×2 (10:30→10:45)
[2025-06-21] MEDS ORDERED: IBUPROFEN600 MG PO (10:38)
[2025-06-21] MEDS ORDERED: OXYCODON-ACETA1 EAC2 PO (10:39)
[2025-06-21] MEDS ORDERED: ACETAMINOPHEN500 MG PO (10:39)
[2025-06-21] MEDS ORDERED: ACETAMINOPHEN 500 MG TAB PO PRN (10:45)
[2025-06-21] MEDS ORDERED: OXYCODONE/APAP 7.5/325 TAB PO PRN (10:45)
[2025-06-21] MEDS ORDERED: LACTATED RINGER'S 1,000 ML IV SCH (10:45)
[2025-06-21] MEDS ORDERED: IBUPROFEN 600 MG TAB PO PRN (10:45)
[2025-06-21 11:11] VITALS: BP 114/72
--- NOTE | 2025-06-21 11:13 | NUR ---
1055 PT ARRIVED TO DAY SURGERY FROM PACU VIA SRIRAM. REPORT TAKEN FROM CHRISTIANO Finnegan RN. CARE TRANSFERRED AT THIS TIME. PT ON 2L OF OXYGEN VIA NASAL CANULLA. PT OXYGEN 95% OR ABOVE ON 2L. PT BREATHING EQUAL AND UNLABORED. PT DROWSEY BUT RESPONSIVE TO VERBAL STIMULI. PT REPORTS NO PAIN OR NAUSEA AT THIS TIME. PT HAS CRACKERS AND WATER AT BEDSIDE. IV ASSESSED. SCDS ON AND RUNNING. 1109 PT SITTING UP IN BED EATING CRACKERS AND DRINKING WATER. PT REMOVED FROM OXYGEN TO RA PT OXYGEN AT 93% AND ABOVE ON RA. NO SHORTENESS OF BREATH AT THIS TIME. PT HAS CALL LIGHT AND PERSONAL ITEMS WITHIN REACH.
--- NOTE | 2025-06-21 11:27 | NUR ---
1125 PT FAMILY IN ROOM. PT OXYGEN DROPPED DOWN TO 86% ON RA. PT PLACED BACK ON 2L OF OXYGEN VIA NASAL CANULLA. PT DROWSEY BUT RESPONSIVE TO VERBAL STIMULI. PT HAS CALL LIGHT WITHIN REACH.
--- NOTE | 2025-06-21 11:33 | NUR ---
1130 PRESCRIPTION GIVEN TO PT SPOUSE TO TAKE TO PHARMACY TO HAVE FILLED. PT IN ROOM BY SELF, PT HAS 2L OF OXYGEN VIA NASAL CANULLA. PT HAS CALL LIGHT WITHIN REACH AND IS WATCHING TV.
[2025-06-21 11:53] VITALS: BP 116/65
--- NOTE | 2025-06-21 11:59 | NUR ---
1150 IN ROOM DOING HOURLYS WITH PT. PT SITTING UPRIGHT IN BED WATCHING TV. PT REMOVED FROM OXYGEN AND IS ON RA. PT STAYING ABOVE 90% ON RA. INCENSTIVE SPEROMETER GONE OVER WITH PT. PT DEMONSTRATES HOW TO USE. PT STATES SHE WILL USE IF SHE HEARS OXYGEN MACHINE DING AND/OR DURING COMMERICALS. PT REPORTING NO PAIN OR NAUSEA AT THIS TIME. PT HAS CALL LIGHT WITHIN REACH. PT HAS TOLERATED PO WATER AND CRACKERS.
--- NOTE | 2025-06-21 13:07 | NUR ---
1235 PT AMBULATES TO BATHROOM WITH STEADY GAIT. PT ABLE TO VOID 200 MLS OF CLEAR YELLOW URINE. PT ABLE TO AMBULATE BACK TO ROOM. PT GETTING DRESSED WTIH SPOUSE'S ASSISTANCE. 1245 IV REMOVED FOR DISCHARGE. WRAPPED WITH GAUZE AND COBAN. DISCHARGE INFORMATION GONE OVER WITH PT, PT SPOUSE AND PT DAUGHTER. NO QUESTIONS AT THIS TIME. PT DISCHARGED FROM DAY SURGERY VIA WHEELCHAIR TO THE FRONT OF THE HOSPITAL TO PT'S SPOUSE'S CAR. PT HAS DISCHARGE PAPERWORK IN HAND AND ALL BELONGINGS WITH PT.
--- NOTE | 2025-06-22 12:14 | OR ---
[facility] [address] [place], [place] [address] Signed DATE OF OPERATION: 06/21/2025 SURGEON: Jonathan Corbin MD PREOPERATIVE DIAGNOSIS: Incisional hernia at the umbilical area, incompletely reducible. POSTOPERATIVE DIAGNOSIS: Incisional hernia at the umbilical area, incompletely reducible, fascial defect 2.0 cm. PROCEDURE: Repair of incarcerated non-strangulated umbilical incisional hernia without mass 2.0 cm. ANESTHESIA: General LMA; Ben Beck, MILLING MACHINE TENDER and local 10 mL of 0.25% Marcaine with epinephrine. INDICATION: This 69-year-old woman is a patient of Dr. Duarte and was referred for consideration of umbilical hernia. She had noted a bulge in the area of the umbilicus at the apex of the low midline incision. The hernia is becoming increasingly symptomatic for particular when she coughs. The patient has had abdominal operations in the past in the low midline incision. This appears to be likely an incisional hernia in the region of the umbilicus. It appears that much of the hernia reduces though it is uncertain if all of it does. She is admitted at this time to undergo repair of the hernia as it is increasingly uncomfortable for her. The risk of bleeding, infection, recurrence were reviewed in detail. She understands and wished to proceed. FINDINGS: Defect was 2 cm. Herniated properitoneal fat was not reducible and required dissection to free it up. Given the small size of the defect implantation of mesh was not deemed necessary and the defect was closed primarily with 0 Prolene suture. She tolerated the procedure well. DESCRIPTION OF PROCEDURE: The patient was brought to the operating room, given a general LMA type anesthetic. Preoperative antibiotic Ancef was given. Sequential compression device stockings used and heparin subcutaneously administered. The abdomen was prepared with a chlorhexidine solution and draped sterilely. At the apex of the low midline incision was area of thickening consistent with hernia and not reducible. An incision was made above and below the umbilicus. Dissection was carried through subcutaneous tissue, surrounding Electronically Signed By: JONATHAN CORBIN MD 06/22/25 1214 PATIENT NAME: KIMMIE PADILLA OPERATIVE REPORT DATE OF : 51 REPORT #: [id number] PHYSICIAN: JONATHAN CORBIN MD PCP: PAUL DUARTE MD REPORT IS CONFIDENTIAL AND NOT TO BE RELEASED WITHOUT AUTHORIZATION [facility] [address] [place] [id number] Signed soft tissue was found to be normal. Ultimately, herniated tissue was noted. The fascial defect identified approximately 2 cm in size. This was dissected free and the herniated properitoneal fat was reduced in properitoneal space. Consideration was made for implantation of mesh, but she was disinclined to do so if possible. On that basis transverse reapproximation was undertaken with interrupted 0 Prolene suture in a vertical mattress configuration. Approximately 6 to 8 sutures were used. A 10 mL of 0.25% Marcaine with epinephrine was injected locally. Irrigation was undertaken and Joshua's layer was reapproximated with interrupted 2-0 Vicryl and a running subcuticular 3-0 Vicryl was used for the skin. Steri-Strips were applied as was an Acticoat dressing. She tolerated the procedure well, was ultimately extubated and transferred to the recovery room in good condition. MD TREVOR Little/JESSICA /[id number] cc: Dr. Duarte Copies: ~ Electronically Signed By: JONATHAN CORBIN MD 06/22/25 1214 PATIENT NAME: KIMMIE PADILLA OPERATIVE REPORT DATE OF : 51 REPORT #: [id number] PHYSICIAN: JONATHAN CORBIN MD PCP: PAUL DUARTE MD REPORT IS CONFIDENTIAL AND NOT TO BE RELEASED WITHOUT AUTHORIZATION
== END 2025-06-21 12:50 | disposition home or self-care (01) ==
LOC: DS 05:55
PROVIDERS: ATTEND Surgery
PROC: 0WQF0ZZ Repair Abdominal Wall, Open Approach (ICD-10-PCS; principal; 2025-06-21 07:30)
DX: K43.0 Incisional hernia with obstruction, without gangrene (principal); D63.8 Anemia in other chronic diseases classified elsewhere; R11.2 Nausea with vomiting, unspecified; F17.210 Nicotine dependence, cigarettes, uncomplicated; J44.9 Chronic obstructive pulmonary disease, unspecified; E78.5 Hyperlipidemia, unspecified; E03.9 Hypothyroidism, unspecified; K90.0 Celiac disease; G25.81 Restless legs syndrome; Z79.82 Long term (current) use of aspirin; Z79.83 Long term (current) use of bisphosphonates; Z79.890 Hormone replacement therapy; Z79.899 Other long term (current) drug therapy; Z88.0 Allergy status to penicillin; Z88.1 Allergy status to other antibiotic agents; Z88.2 Allergy status to sulfonamides; Z90.49 Acquired absence of other specified parts of digestive tract
CPT/HCPCS: 00750; C1781; J0131; J0688; J1100; J1644; J2003; J2405; J2704; J3010; J7121